=== PATIENT | male | born 1960 | race Caucasian/White ===

== ENCOUNTER → 2017-03-13 | Outpatient (CLI) | payer OTHER | LOC: CIMAGING 15:45 | PROVIDERS: ATTEND Nurse Practitioner | DX: R93.8 Abnormal findings on diagnostic imaging of other specified body structures (principal); R42 Dizziness and giddiness | CPT/HCPCS: 93880-PO ==

== ENCOUNTER 2018-08-01 18:50 | Emergency (ER) | payer OTHER ==
[2018-08-01 18:58] VITALS: BP 115/79
--- NOTE | 2018-08-01 19:40 | EDPHY ---
H & P Time Seen by Provider: 08/01/18 19:08 HPI/ROS: CHIEF COMPLAINT: Left foot pain HISTORY OF PRESENT ILLNESS: Patient is a 58-year-old male with no significant past medical history who presents with 2 days of swelling and redness to the left 1st MTP joint. States that he was walking barefooted few days ago and stiffness some pine needles and thinks that he has cellulitis. States they had a very similar presentation around 2 years ago rate infection of the right pointer finger. He has no known history of rheumatologic disease including no signs of gout or rheumatoid arthritis. He denies any fever or chills. He has no pain with range of motion of the toe but does report pain with walking and pressing on the area. REVIEW OF SYSTEMS: Constitutional: No fever, no chills. Eyes: No discharge. ENT: No sore throat. Cardiovascular: No chest pain, no palpitations. Respiratory: No cough, no shortness of breath. Gastrointestinal: No abdominal pain, no vomiting. Genitourinary: No hematuria. Musculoskeletal: No back pain. Skin: No rashes. Neurological: No headache. Smoking Status: Never smoked Physical Exam: General Appearance: Alert and no distress. Eyes: Pupils equal and round no injection. Respiratory: Chest is nontender, lungs are clear to auscultation. Cardiac: regular rate and rhythm. Gastrointestinal: Abdomen is soft and nontender, no masses, bowel sounds normal. Musculoskeletal: Neck is supple and nontender. Extremities have full range of motion and are nontender. Skin: No rashes or lesions. Erythema to the plantar aspect of the left 1st MCP. No joint swelling. No skin lesions. No induration. Constitutional: Initial Vital Signs Temperature (C) 36.6 C 08/01/18 18:56 Heart Rate 73 08/01/18 18:56 Respiratory Rate 17 08/01/18 18:56 Blood Pressure 115/79 08/01/18 18:56 O2 Sat (%) 99 08/01/18 18:56 O2 Delivery Mode Room Air Allergies/Adverse Reactions: No Known Allergies Allergy (Verified 08/01/18 18:56) Home Medications: Medication Instructions Recorded Cymbalta 11/04/15 Cephalexin [Keflex (*)] 500 mg PO Q6H 7 Days #28 cap 08/01/18 oxyCODONE/APAP 5/325 [Percocet 1 tab PO Q6 #12 tab 08/01/18 5/325 (*)] Medical Decision Making ED Course/Re-evaluation: 58-year-old male here with left foot pain erythema and swelling. History and exam are most consistent with cellulitis. Will treat him with anti- inflammatories and Keflex. We did discuss the possibility of underlying rheumatologic disease as he has had multiple joints that of become swollen and erythematous. He agrees to follow up with his primary care doctor for further evaluation. Differential Diagnosis: Gout, septic arthritis, rheumatoid arthritis, fracture - Data Points Medications Given: Discontinued Medications Cephalexin HCl (Keflex) 500 mg PO EDNOW ONE PRN Reason: Protocol Stop: 08/01/18 19:41 Last Admin: 08/01/18 19:47 Dose: 500 mg Ketorolac Tromethamine (Toradol) 30 mg IM EDNOW ONE Stop: 08/01/18 19:41 Last Admin: 08/01/18 19:47 Dose: 30 mg Departure - Departure Disposition: Home, Routine, Self-Care Clinical Impression: Cellulitis of foot Condition: Good Instructions: Cellulitis (ED) Additional Instructions: Take Keflex 4 times a day for 7 days for infection. Additionally take Motrin 600 mg 3 times a day for the next 5 days. He have worsening pain or swelling or redness please return to the ER follow-up with primary care physician for further evaluation. Referrals: NONE *PRIMARY CARE P,. [Primary Care Provider] - As per Instructions [facility],. [Clinic] - As per Instructions Prescriptions: Cephalexin [Keflex (*)] 500 mg PO Q6H 7 Days #28 cap oxyCODONE/APAP 5/325 [Percocet 5/325 (*)] 1 tab PO Q6 #12 tab
[2018-08-01] MEDS: KETOROLAC 30 MG/1 ML SDV IM ONE (19:47)
[2018-08-01] MEDS: CEPHALEXIN 500 MG CAP PO ONE (19:47)
== END 2018-08-01 19:53 | disposition home or self-care (01) ==
DX: L03.116 Cellulitis of left lower limb (principal)
CPT/HCPCS: J1885

== ENCOUNTER 2018-08-26 17:49 | Emergency (ER) | payer OTHER ==
[2018-08-26 18:14] LABS: PLATELET COUNT 222 10^3/uL (150-400)
[2018-08-26] MEDS ORDERED: fentaNYL 100 MCG/2 ML INJ IVP ONE (18:18)
[2018-08-26] MEDS ORDERED: ONDANSETRON 4 MG/2 ML VIAL IVP ONE (18:18)
[2018-08-26] MEDS ORDERED: FAMOTIDINE 20 MG/NACL 50 ML IV ONE (18:18)
[2018-08-26 18:23] LABS: INR 0.87 (0.83-1.16); PROTIME(PATIENT) 12.1 SEC (12.0-15.0)
--- NOTE | 2018-08-26 18:24 | EDPHY ---
H & P Time Seen by Provider: 08/26/18 18:05 HPI/ROS: HPI Chest pain. 58-year-old male by private vehicle with his . This patient reports he was at work. He was sitting down. At approximately 2:45 p.m. He developed sudden- onset mid upper substernal chest pain which was significantly worse when he took a deep breath in. He reports with taking a deep breath in the pain is a 10 /10. If he takes shallow breaths his pain is a 5/10. He has never experienced this pain before. He denies swallowing something unusual or esophageal foreign body, there is no history of trauma. He has not had a cough. No fever. He was not doing anything strenuous at work. ROS: Constitutional: No fever, no chills. No weakness. Eyes: No discharge. No changes in vision. ENT: No sore throat. No nasal congestion or rhinorrhea. Respiratory: No cough. As above. Cardiac: As above, no palpitations. Gastrointestinal: No abdominal pain, no vomiting, no diarrhea. Genitourinary: No hematuria. No dysuria or increased frequency with urination. Musculoskeletal: No back pain. No neck pain. No myalgias or arthralgias. Skin: No rashes. Neurological: No headache. No focal weakness or altered sensation. Past medical history: Depression, anxiety, appendectomy. Social history: Nonsmoker. Here with his . No alcohol. Physical Exam: General Appearance: Alert, he is anxious but not in distress. This patient is responding to questions appropriately and in full sentences. This patient appears well-hydrated and well-nourished. Eyes: Pupils equal and round no pallor or injection. No lid edema, erythema or injection. Respiratory: There are no retractions, lungs are clear to auscultation with good air movement bilaterally. No tachypnea. Cardiovascular: Regular rate and rhythm. No murmur. Gastrointestinal: Abdomen is soft and nontender, no masses, bowel sounds normal. No focal tenderness at McBurney's point. No Haskins sign. Neurological: Motor sensory function is grossly intact. Cranial nerves are normal. Gait is normal. Skin: Warm and dry, no rashes. Musculoskeletal: Neck is supple and nontender. Extremities are symmetrical. All joints range without pain or impingement. Psychiatric: No agitation. No depression. Database: EKG: EKG time is 6:08 p.m.; EKG shows a narrow complex normal sinus rhythm with a ventricular rate of 92. The RI, QRS, QT intervals are within normal limits. Minimal ST elevation in the inferior leads. No reciprocal changes noted. No evidence of right heart strain. Interpreted by me. Imaging: CT angiogram of chest: No evidence of pulmonary embolism, dissection or other significant findings noted. Results were discussed with staff radiologist Dr. Adonay Black. Procedures: Emergency department course: Triage vital signs reviewed. He is mildly tachycardic. Triage vital signs are otherwise normal. He is afebrile. On my examination is quality assurance monitor body shows a narrow complex sinus rhythm with ventricular rate of 91. IV placed. He was placed on a quality assurance monitor body. EKG obtained and reviewed by myself. He will be given 25 mcg of IV fentanyl for pain. He will be given 20 mg of IV Pepcid. Fentanyl be repeated every 10 min up to x3 as needed for pain and anxiolysis. Heart score is 1. 8:15 p.m., the patient was re-evaluated. She stated that the fentanyl help with this pain but his pain came back knee still having pain with taking a deep breath. At this time I feel his presentation is consistent with pleurisy versus esophageal spasm. He has no contraindications to NSAIDs. He has a normal creatinine. He will be given 30 mg of IV Toradol and 5 mg of IV Valium. I feel acute coronary syndrome, pulmonary embolism and aortic dissection are unlikely. 9:00 p.m., the patient was re-evaluated. He is resting comfortably. He is eating. He states that he feels much better. He appears very relaxed and comfortable. He denies any significant pain. I discussed admission with him and his for observation overnight. He does not want to do this. He understands the risks of declining admission. The patient competently engages in shared decision making. They demonstrate capacitance to make decisions. At this time he is requesting to be discharged to home. I feel this is reasonable. I discussed follow-up with his primary care physician and with Cardiology with both him and his . Return to emergency department precautions were thoroughly reviewed. All of their questions were answered. The patient was discharged home in good condition with his who is driving. Differential Diagnosis: The differential diagnosis on this patient includes but is not limited to pulmonary embolism, pleurisy, esophageal spasm, acute coronary syndrome, aortic dissection. This represents a partial list of diagnoses considered. These considerations are based on history, physical exam, past history, reassessment and diagnostic testing. Smoking Status: Never smoked Constitutional: Initial Vital Signs Temperature (C) 36.9 C 08/26/18 17:53 Heart Rate 112 H 08/26/18 17:53 Respiratory Rate 18 08/26/18 17:53 Blood Pressure 116/69 08/26/18 17:53 O2 Sat (%) 97 08/26/18 17:53 O2 Delivery Mode Room Air Allergies/Adverse Reactions: No Known Allergies Allergy (Verified 08/26/18 17:53) Home Medications: Medication Instructions Recorded Cymbalta 11/04/15 Cephalexin [Keflex (*)] 500 mg PO Q6H 7 Days #28 cap 08/01/18 oxyCODONE/APAP 5/325 [Percocet 1 tab PO Q6 #12 tab 08/01/18 5/325 (*)] Medical Decision Making - Diagnostics Imaging Results: Imaging Impressions Chest/Thorax CTA 08/26/18 18:18 Impression: No evidence for pulmonary embolic disease. Results discussed with Dr. Dawn. General information for patients regarding this examination can be found at [email or web address]. If you have questions or comments about this report, please contact me at (hospital) or [phone] (cell). - Data Points Laboratory Results: Laboratory Results 08/26/18 18:05 08/26/18 18:05 08/26/18 08/26/18 08/26/18 18:10 18:05 18:05 WBC RBC Hgb Hct MCV MCH MCHC RDW Plt Count MPV Neut % (Auto) Lymph % (Auto) [place] % (Auto) Eos % (Auto) Baso % (Auto) Nucleat RBC Rel Count Absolute Neuts (auto) Absolute Lymphs (auto) Absolute Monos (auto) Absolute Eos (auto) Absolute Basos (auto) Absolute Nucleated RBC Immature Gran % Immature Gran # PT 12.1 SEC SEC (12.0-15.0) INR 0.87 (0.83-1.16) APTT 29.2 SEC SEC (23.0-38.0) D-Dimer 0.30 ug/mLFEU ug/mLFEU (0.00-0.50) Sodium 138 mEq/L mEq/L (135-145) Potassium 4.0 mEq/L mEq/L (3.3-5.0) Chloride 99 mEq/L mEq/L (97-110) Carbon Dioxide 27 mEq/l mEq/l (22-31) Anion Gap 12 mEq/L mEq/L (6-14) BUN 20 mg/dL mg/dL (7-23) Creatinine 0.8 mg/dL mg/dL (0.7-1.3) Estimated GFR > 60 Glucose 101 mg/dL H mg/dL (70-100) Calcium 10.3 mg/dL mg/dL (8.5-10.4) POC Troponin I 0.00 ng/mL ng/mL (0.00-0.08) 08/26/18 18:05 WBC 12.26 10^3/uL H 10^3/uL (3.80-9.50) RBC 5.27 10^6/uL 10^6/uL (4.40-6.38) Hgb 16.5 g/dL g/dL (13.7-17.5) Hct 47.0 % % (40.0-51.0) MCV 89.2 fL fL (81.5-99.8) MCH 31.3 pg pg (27.9-34.1) MCHC 35.1 g/dL g/dL (32.4-36.7) RDW 11.8 % % (11.5-15.2) Plt Count 222 10^3/uL 10^3/uL (150-400) MPV 9.3 fL fL (8.7-11.7) Neut % (Auto) 82.2 % H % (39.3-74.2) Lymph % (Auto) 10.7 % L % (15.0-45.0) [place] % (Auto) 5.7 % % (4.5-13.0) Eos % (Auto) 0.7 % % (0.6-7.6) Baso % (Auto) 0.4 % % (0.3-1.7) Nucleat RBC Rel Count 0.0 % % (0.0-0.2) Absolute Neuts (auto) 10.08 10^3/uL H 10^3/uL (1.70-6.50) Absolute Lymphs (auto) 1.31 10^3/uL 10^3/uL (1.00-3.00) Absolute Monos (auto) 0.70 10^3/uL 10^3/uL (0.30-0.80) Absolute Eos (auto) 0.08 10^3/uL 10^3/uL (0.03-0.40) Absolute Basos (auto) 0.05 10^3/uL 10^3/uL (0.02-0.10) Absolute Nucleated RBC 0.00 10^3/uL 10^3/uL (0-0.01) Immature Gran % 0.3 % % (0.0-1.1) Immature Gran # 0.04 10^3/uL 10^3/uL (0.00-0.10) PT INR APTT D-Dimer Sodium Potassium Chloride Carbon Dioxide Anion Gap BUN Creatinine Estimated GFR Glucose Calcium POC Troponin I Medications Given: Discontinued Medications Diazepam (Valium) 5 mg IVP EDNOW ONE Stop: 08/26/18 20:13 Last Admin: 08/26/18 20:24 Dose: 5 mg Fentanyl (Sublimaze) 25 mcg IVP EDNOW ONE Stop: 08/26/18 18:19 Last Admin: 08/26/18 18:41 Dose: 25 mcg Famotidine/Sodium Chloride (Pepcid 20 Mg (Premix)) 50 mls @ 200 mls/hr IV EDNOW ONE Stop: 08/26/18 18:32 Last Admin: 08/26/18 18:43 Dose: 50 mls Ketorolac Tromethamine (Toradol) 30 mg IVP EDNOW ONE Stop: 08/26/18 20:14 Last Admin: 08/26/18 20:19 Dose: 30 mg Ondansetron HCl (Zofran) 4 mg IVP EDNOW ONE Stop: 08/26/18 18:19 Last Admin: 08/26/18 18:36 Dose: 4 mg Point of Care Test Results: Chemistry 08/26/18 18:10 POC Troponin I 0.00 ng/mL ng/mL (0.00-0.08) Departure - Departure Disposition: Home, Routine, Self-Care Clinical Impression: Chest pain, Dyspnea Condition: Good Instructions: Chest Pain (ED), Pleurisy (ED) Additional Instructions: Read and follow provided instructions. Follow-up with your primary care physician tomorrow or on Thursday or Thursday of next week for re-evaluation. You can start taking ibuprofen for pain control again tomorrow morning. Ibuprofen dosin mg every 6 hours with meals for the next 3 days only. Take only as needed for pain. Return to the emergency department immediately for return of of chest pain/ worsening chest, difficulty breathing, fever or other serious concerns. Referrals: Nilda Bruno, DATA ENTRY PROCESSOR [Primary Care Provider] - As per Instructions
[2018-08-26] MEDS ORDERED: IOPAMIDOL (ISOVUE 370) 100 ML BTL IV ONE (18:47)
[2018-08-26] MEDS ORDERED: DIAZEPAM 5 MG/ML 1 ML SYR IVP ONE (20:12)
[2018-08-26] MEDS ORDERED: KETOROLAC 30 MG/1 ML SDV IVP ONE (20:13)
--- NOTE | 2018-08-26 20:30 | CPEKG ---
Test Reason : OPEN Blood Pressure : / mmHG Vent. Rate : 092 BPM Atrial Rate : 091 BPM P-R Int : 136 ms QRS Dur : 095 ms QT Int : 345 ms P-R-T Axes : 036 055 026 degrees QTc Int : 427 ms Sinus rhythm Minimal ST elevation, inferior leads Confirmed by Gina Dawn ([id number]) on 08/26/2018 8:29:31 PM Referred By: Confirmed By:Gina Dawn
[2018-08-26 21:23] VITALS: BP 92/57
== END 2018-08-26 21:15 | disposition home or self-care (01) ==
DX: R07.9 Chest pain, unspecified (principal); R06.00 Dyspnea, unspecified
CPT/HCPCS: 84484-PO; 96365; J1885; J2405; J3010; J3360; Q9967